=== PATIENT | female | born 2000 | race Caucasian/White ===

== ENCOUNTER 2023-10-02 08:20 | Outpatient (CLI) | payer BC, SELFPAY | END 2023-10-02 08:21 | disposition home or self-care (01) | LOC: NFLDREF 11:32 | PROVIDERS: PCP Family Medicine; Referring Provider Family Medicine; Visit Provider Family Medicine | DX: Z13.220 Encounter for screening for lipoid disorders (principal); Z13.228 Encounter for screening for other metabolic disorders | CPT/HCPCS: 80053; 80061 ==

== ENCOUNTER 2024-10-03 07:53 | Outpatient (CLI) | payer BC, SELFPAY | END 2024-10-03 07:54 | disposition home or self-care (01) | LOC: NFLDREF 10-07 18:27 | PROVIDERS: PCP Family Medicine; Referring Provider Family Medicine; Visit Provider Family Medicine | DX: E78.00 Pure hypercholesterolemia, unspecified (principal); Z13.1 Encounter for screening for diabetes mellitus | CPT/HCPCS: 80061; 82947 ==

== ENCOUNTER 2024-10-09 10:29 | Outpatient (CLI) | payer BC, SELFPAY ==
[2024-10-11 02:24] LABS: HPV Source Cervical/Vag; HPV, High Risk by TMA Not Detected
== END 2024-10-09 10:30 | disposition home or self-care (01) ==
PROVIDERS: PCP Family Medicine; Visit Provider Family Medicine
DX: Z12.4 Encounter for screening for malignant neoplasm of cervix (principal); Z11.51 Encounter for screening for human papillomavirus (HPV)
CPT/HCPCS: 87624; 87625; 88141; 88142